=== PATIENT | male | born 1985 | race Caucasian/White ===

== ENCOUNTER 2021-04-24 20:18 | Emergency (ER) | payer MEDICARE, MEDICAID ==
[~2021-04-24] VITALS: Ht 152 cm; Wt 72.5 kg
[2021-04-24 20:22] VITALS: BP 114/75
[2021-04-24] MEDS ORDERED: predniSONE 20 MG TAB PO ONE (20:30)
[2021-04-24] MEDS ORDERED: PRD20T PO (20:32)
--- NOTE | 2021-04-24 20:32 | ED Integumentary General ---
General Stated Complaint: RASH ALL OVER BODY Source: patient Exam Limitations: no limitations (DONOVAN GUTIERREZ APRN) History of Present Illness Date Seen by Provider: Apr 24, 2021 Time Seen by Provider: 20:30 Initial Comments Pruritic rash to torso and left arm onset this morning has had Benadryl ela without much improvement. No known cause no other symptoms. Timing/Duration: constant Severity: moderate Location: torso, extremities Possible Cause: no cause identified Associated Symptoms: denies symptoms (DONOVAN GUTIERREZ APRN) Allergies and Home Medications Allergies Coded Allergies: No Known Drug Allergies (Unverified , 04/24/21) Home Medications Prednisone 20 Mg Tab, 40 MG PO DAILY Prescribed by: DONOVAN GUTIERREZ on 04/24/212031 Patient Home Medication List Home Medication List Reviewed: Yes (DONOVAN GUTIERREZ APRN) Review of Systems Review of Systems Constitutional: see HPI; No chills, No fever EENTM: see HPI; No nose congestion, No throat pain Respiratory: no symptoms reported Cardiovascular: no symptoms reported Genitourinary: no symptoms reported Musculoskeletal: no symptoms reported Skin: see HPI Psychiatric/Neurological: No Symptoms Reported Endocrine: No Symptoms Reported (DONOVAN GUTIERREZ APRN) Physical Exam Vital Signs Vital Signs - First Documented 04/24/21 20:22 Temp 36.7 Pulse 96 Resp 18 B/P (MAP) 114/75 (88) Pulse Ox 100 O2 Delivery Room Air (BRIAN MACIEL MD) Vital Signs Capillary Refill : (DONOVAN GUTIERREZ APRN) General Appearance: WD/WN, no apparent distress HEENT: PERRL/EOMI, normal ENT inspection Respiratory: no respiratory distress, no accessory muscle use Gastrointestinal: normal bowel sounds, non tender, other (Colostomy left lower abdomen) Neurologic/Psychiatric: alert, normal mood/affect, oriented x 3 Skin: normal color, warm/dry Skin Problem Character: other (Erythematous papular rash to the torso and left arm. Nothing on the palms nothing in the mouth.) (DONOVAN GUTIERREZ APRN) Progress/Results/Core Measures Results/Orders Vital Signs/I&O 04/24/21 20:22 Temp 36.7 Pulse 96 Resp 18 B/P (MAP) 114/75 (88) Pulse Ox 100 O2 Delivery Room Air (BRIAN MACIEL MD) Departure Impression Primary Impression: Urticaria Disposition: 01 HOME, SELF-CARE Condition: Stable Departure-Patient Inst. Decision time for Depature: 20:31 (DONOVAN GUTIERREZ APRN) Patient Instructions: NO INSTRUCTIONS GIVEN Add. Discharge Instructions: Continue with Benadryl 1 to 2 tablets every 4-6 hours. Steroids as directed. Follow-up with your doctor next week. Scripts Prednisone (Prednisone) 20 Mg Tab 40 MG PO DAILY, #6 TAB 0 Refills Prov: DONOVAN GUTIERREZ APRN 04/24/21 ATTENDING PHYSICIAN NOTE: I was physically present as attending physician in the emergency department during the care of this patient, but I was not directly involved in the decision making or delivery of care for this patient. (BRIAN MACIEL MD) DONOVAN GUTIERREZ APRN Apr 24, 2021 20:32 BRIAN MACIEL MD Apr 25, 2021 21:42
--- OUTSIDE RECORDS SUMMARY | 2021-04-27 20:01 | XMS REPORT | Clinical Summary ---
Author Author [facility] Organization [facility] Address Unknown Phone Unavailable Care Team Providers Care Cash Grain Farmer Name Role Phone [place]-Mary Brown MD Unavailable Natalie Weber MD Unavailable Ruperto Cardenas MD Unavailable Unavailable Stephanie Becker DO Unavailable Gloria Stubbs MD Unavailable Olesya Avina DO Unavailable Chuck Morris MD Unavailable Micky VELOZ PA-C, James R Unavailable [phone] Jett Hitchcock MD Unavailable Maddy Campbell MD Unavailable Dyllan Byrne MD Unavailable Jaison Luciano MD Unavailable Bryon Stapleton MD Unavailable Anitha Browning MD Unavailable Aurora Moody Unavailable Unavailable Princess Angelo RN Unavailable Unavailable Arely Paul RN Unavailable Unavailable Princess Bangura RN Unavailable Unavailable Dana Serna Unavailable Unavailable Arely Paul Unavailable Unavailable Raulito Isabel MD Unavailable Ruben Neumann RN Unavailable Mayela Fabian MD Unavailable Kamla Dent HOUSEKEEPING DIRECTOR-MARKETING STRATEGY LEAD Unavailable Winsome Kramer Unavailable Unavailable Mar Tabor LPN Unavailable Unavailable Bri Hart Unavailable Unavailable Arturo Otoole MD PCP Khloe Thompson DO 21 Source Comments Some departments are not documenting in the electronic medical record. If you d o not see the information that you expected, contact Release of Information in [facility] Information Management department at [phone] for further assistan ce in locating additional records.[facility] Allergies Comments Active Allergy Reactions Severity Noted Date Allergy recorded in SMS: Latex~Reactions: ANAPHYLAXIS Latex High 02/25/2007 Allergy recorded in SMS: VANCOMYCIN~Reactions: RASH Vancomycin RASH Medium 02/25/2007 Medications End Date Status Medication Sig Dispensed Refills Start Date Active Loperamide (IMODIUM A-D) Take 1 Tab by 30 Tab 2 2 mg chew mouth as 6 Needed (Diarrhea). Active ondansetron (ZOFRAN) 4 mg Take 4 mg by 0 tablet mouth every 8 hours as needed for Nausea or Vomiting. Active cetirizine HCl (ZYRTEC Take 10 mg by 0 PO) mouth daily. Active PARoxetine (PAXIL) 20 mg Take 20 mg by 0 tablet mouth daily. Active tacrolimus (PROGRAF) 1 mg TAKE 3 150 capsule 11 capsule CAPSULES BY 0 MOUTH EVERY MORNING AND TAKE 2 CAPSULES EVERY EVENING Active mycophenolate DR Take 1 tablet 180 tablet 3 08/09/ 02 (MYFORTIC) 180 mg TbEC by mouth 0 tablet twice daily. 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 LR kidney transplantation 13 with organ from 24 yo 190 lb brother; immediate graft function. CMV neg donor and recipient; EBV neg donor and positive recipient. Pretransplant plas mapheresis x 3 followed by low dose IVIG for DR donor-specific antibody in low titer (MFI values 40,000 and 26,000 prePP). Induction with Thymoglob ulin; total dose 125 mg.. Converted urinary drainage to ureteral sigmoid co nduit during procedure. Discharge creatinine 0.9 mg/dl 2-22 Weight 135 lb s; height 60 in.. Donor HLA Class I: A2,29, B18,44, Bw6,4, Cw12,16; Class II : DR7,15. DR53,DR51, DQ2,6. Recipient HLA Class I: A1,29, B8,44, C7 ,16, SEB4 53, DQB1 2,7. Immunosuppression 10/16/2015 Overview: Formatting of this note might be differ ent from the original. Pretransplant plasmapheresis x 3 follow ed by low dose IVIG for DR donor-specific antibody in low titer (M FI values 40,000 and 26,000 prePP). Induction with Thymoglobulin; total dos e 125 mg. 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 Eosinophilia since 2007, with positive aspergillus skin test and IgE and IgG positive serum to aspergillus, CT s can with infiltrative disease, responsive to steroids. Asthma 07/02/2011 Overview: Formatting of this note might be differ ent from the original. Diagnosed in [address] arted. Axillary lymphadenopathy 07/02/2011 Overview: Formatting of this note might be differ ent from the original. R axillary LAD. CT scan looks reactive. May be related to lung hypersensitivity. Consider axillary bio psy. Pneumonia due to Pseudomonas 07/21/2008 Overview: Formatting of this note might be differ ent from the original. 2/2 aspiration [facility] Postoperative pneumothorax 07/21/2008 Overview: Formatting of this note might be differ ent from the original. Right side, 2/2 right IJ placement at o [facility] facility Fecal incontinence 07/21/2008 Overview: Formatting of this note might be differ ent from the original. 2/2 spina bifida S/P GUNSMITH APPRENTICE shunt 07/21/2008 AVF (arteriovenous fistula) 07/21/2008 Hemodialysis patient 07/21/2008 Aspiration pneumonitis 07/21/2008 Overview: Formatting of this note might be differ ent from the original. Outside facility during IJ placement ESRD (end stage renal disease) Overview: Formatting of this note might be differ ent from the original. 2/2 congenital horseshoe kidney. Spina bifida Horseshoe kidney Obstructive uropathy Resolved Problems Problem Noted Date Resolved Date Testicular pain, right 09/26/2015 09/28/2015 Encounters Care Team Description Date Type Specialty Mayela Fabian MD 03/19/2021 Refill Transplant Surgery from Last 3 Months Surgical History Surgery Date Site/Laterality Comments VENTRICULOPERITONEAL 1984 x3 shunt revision s SHUNT SPINE SURGERY 1984 Spina Bifida Defect Closure CYSTOSTOMY ~ 1984 (4 Vesicostomy mo old) COLON SURGERY ~ 1985 (18 Non-Refluxing Colon Conduit; Dr. Gabrielle Fernandez & Dr. za lenz) Silvia @ [facility] SPINE SURGERY 1984 DIALYSIS FISTULA CREATION 2007 Right Upper Extremity AV FISTULA REPAIR 2007 CARDIOVASCULAR STRESS 2008 [facility] TEST Medical History Medical History Date Comments Unspecified cardiovascular disease Unspecified disorders of nervous system ESRD (end stage renal disease) ([facility]) 07/12/08 Horseshoe kidney Uropathy obstructive Respiratory failure ([facility]) 07/10/08 Pneumothorax 07/10/08 Right Mechanically assisted ventilation 07/10/08 Hemodialysis 07/05/08 Spina bifida Urinary incontinence Chronic intermittent Bowel incontinence Chronic intermittent Hydronephrosis Aspiration pneumonia ([facility]) 07/12/08 With pseudo monas infection Chronic cough 05/2010 GERD (gastroesophageal reflux disease) CHF (congestive heart failure) ([facility]) Pulmonary hypertension ([facility]) Lymphadenopathy 11/2009 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[facility]) History of bronchiectasis Asthma 07/02/2011 Family History Medical History Relation Name Comments Coronary Artery Disease Father Gwain CABGx5 Diabetes Father Gwain Heart Failure Father Gwain High Cholesterol Father Gwain Hypertension Father Gwain Premature Heart Disease Father Gwain Cancer Maternal skin- unknown Grandfather Coronary Artery Disease Paternal Grandfather Premature Heart Disease Paternal Grandfather Relation Name Status Comments Brother Isaiah Alive Father Gwain Alive Maternal Grandfather Mother Marie Alive Other Kevin Alive Paternal Grandfather CAD, CABGx3 (Age 52) Social History Date Tobacco Use Types Packs/Day Years Used Never Smoker Smokeless Tobacco: Never Used Drinks/Week oz/Week Comments Alcohol Use occas. beer No Sex Assigned at Date Recorded Not on file Last Filed Vital Signs Reading Time Taken Comments Vital Sign 99/68 12/09/2018 11:11 AM CDT Blood Pressure 80 12/09/2018 11:11 AM CDT Pulse 36.6 C (97.9 F) 12/09/2018 11:11 AM CDT Temperature 18 09/29/2018 1:07 PM REGIONAL PROJECT MANAGER Respiratory Rate 98% 12/09/2018 11:11 AM CDT Oxygen Saturation - - Inhaled Oxygen Concentration 81.8 kg (180 lb 6.4 oz) 12/09/2018 11:11 AM CDT Weight 152.4 cm (5') 12/09/2018 11:11 AM CDT Height 35.23 12/09/2018 11:11 AM CDT Body Mass Index Plan of Treatment Health Maintenance Due Date Last Done Comments DTAP/TDAP VACCINES (1 - 2002 Tdap) PHYSICAL (COMPREHENSIVE) 2002 EXAM INFLUENZA VACCINE 06/22/2021 07/01/2018, 06/18/2010, 07/05/1999 HEPATITIS C SCREENING Completed 10/29/2012, 08/22/2009 HIV SCREENING Completed 10/29/2012, 08/22/2009 Results Not on filefrom Last 3 Months Insurance Type Payer Benefit Subscriber ID Effective Phone Address Plan / Dates Group Medicaid [facility] MEDICAID [place] QomutyER [id number] 2018-P [facility] Medicare MEDICARE MEDICARE [id number] 2008-P PART A AND resent B Advance Directives Patient Legislative Aide Explanation Type Date Recorded Advance Directives and Living Will Advance 09/27/2015 8:24 AM Directive/DPOA Advance Directives 04/19/2013 11:20 AM and Living Will Advance Directives 09/10/2012 1:15 PM and Living Will Advance Directives 09/10/2012 1:54 PM and Living Will Advance Directives 09/08/2012 4:28 PM and Living Will Advance Directives 03/16/2012 3:03 PM and Living Will Advance Directive/DPOA Advance 09/29/2018 1:01 PM Directive/DPOA Date Inactivated Comments Code Status Date Activated 09/28/2015 4:39 PM Full Code 09/26/2015 8:20 PM Provider has discussed Code Status No, more discussi on w/Patient or Family? needed 11/13/2012 6:26 PM Full Code 11/11/2012 4:49 PM Provider has discussed Code Status No, more discussi on w/Patient or Family? needed 11/09/2012 6:11 PM Full Code 10/31/2012 8:46 AM Provider has discussed Code Status No, more discussi on w/Patient or Family? needed 07/21/2008 5:02 PM Full Code 07/13/2008 3:17 AM
--- OUTSIDE RECORDS SUMMARY | 2021-04-27 20:01 | XMS REPORT | Encounter Summary ---
Author Author [facility] Organization [facility] Address Unknown Phone Unavailable Care Team Providers Care Telescope Maintenance Name Role Phone [place]-Mary Brown MD Unavailable Natalie Weber MD Unavailable Ruperto Cardenas MD Unavailable Unavailable Stephanie Becker DO Unavailable Gloria Stubbs MD Unavailable Olesya Avina DO Unavailable Chuck Morris MD Unavailable Micky VELOZ PA-C, James R Unavailable [phone] Jett Hitchcock MD Unavailable Maddy Campbell MD [...] Unavailable Mayela Fabian MD Unavailable Kamla Dent COMPLIANCE QUALITY PERFORMANCE ANALYST-FOOD SERVICE EMPLOYEE Unavailable Winsome Kramer Unavailable Unavailable Mar Tabor LPN Unavailable Unavailable Bri Hart Unavailable Unavailable Arturo Otoole MD PCP Khloe Thompson DO 21 Reason for Visit * Reason Comments Medication Refill Encounter Details Care Team Description Date Type Department Mayela Fabian MD [address] [place] [address] 03/19/2021 Refill Transplant: Main [place] [facility], [facility] [address] [place] [address] Social History Date Tobacco Use Types Packs/Day Years Used Never Smoker Smokeless Tobacco: Never Used Drinks/Week oz/Week Comments Alcohol Use occas. beer No Sex Assigned at Date Recorded Not on file documented as of this encounter Functional Status Date of Assessment Functional Status Response 12/09/2018 Does the patient have a hearing impairment: No 12/09/2018 Does the patient have a visual impairment: Yes 12/09/2018 Does the patient have impaired ambulation: No 12/09/2018 Does the patient have an activity of daily living No (ADL) impairment: 12/09/2018 Does the patient have an instrumental activity of No daily living (IADL) impairment: Date of Assessment Cognitive Status Response 12/09/2018 Does the patient have a cognitive impairment: Yes documented as of this encounter Ordered Prescriptions Start Date End Date Prescription Sig Dispensed Refills 03/19/2021 tacrolimus (PROGRAF) 1 mg TAKE 3 150 capsule 11 capsule CAPSULES BY MOUTH EVERY MORNING AND TAKE 2 CAPSULES EVERY EVENING documented in this encounter Plan of Treatment Not on filedocumented as of this encounter Visit Diagnoses Not on filedocumented in this encounter Discontinued Medications Start Date End Date Medication Sig Discontinue Reason 03/02/2020 03/19/2021 tacrolimus (PROGRAF) 1 mg TAKE 3 Reorder capsule CAPSULES BY MOUTH EVERY MORNING AND TAKE 2 CAPSULES EVERY EVENING documented as of this encounter Additional Health Concerns Assessment Noted Time A fall risk assessment has been completed for the pat ient 12/09/2018 11:11 AM CDT documented as of this encounter
== END 2021-04-24 20:50 | disposition home or self-care (01) ==
LOC: EDUNIT# 20:18 → ER 20:21
DX: L50.9 Urticaria, unspecified (principal)
CPT/HCPCS: 99283

== ENCOUNTER 2021-06-23 22:31 | Emergency (ER) | payer MEDICARE, MEDICAID ==
[~2021-06-23] VITALS: Ht 152 cm; Wt 63.5 kg
[~2021-06-23 22:31] MED LIST: PRD20T PO
--- OUTSIDE RECORDS SUMMARY | 2021-06-23 22:35 | XMS REPORT | Clinical Summary ---
Author Author [facility] Organization [facility] Address Unknown Phone Unavailable Care Team Providers Care Commercial Lines Manager Name Role Phone [place]-Mary Brown MD Unavailable Natalie Weber MD Unavailable Ruperto Cardenas MD Unavailable Unavailable Stephanie Becker DO Unavailable Gloria Stubbs MD Unavailable Olesya Avina DO Unavailable Chuck Morris MD Unavailable [phone] Micky VELOZ PA-C, James R Unavailable [phone] Jett Hitchcock MD Unavailable Maddy Campbell MD Unavailable Dyllan Bynre MD Unavailable Jaison Luciano MD Unavailable Bryon Stapleton MD Unavailable Anitha Browning MD Unavailable Aurora Moody Unavailable Unavailable Princess Angelo RN Unavailable Unavailable Arely Paul RN Unavailable Unavailable Princess Bangura RN Unavailable Unavailable Dana Serna Unavailable Unavailable Arely Paul Unavailable Unavailable Raulito Isabel MD Unavailable Ruben Neumann RN Unavailable Mayela Fabian MD Unavailable Kamla Dent CLAIMS ADJUSTER SUPERVISOR-LOADER UNLOADER Unavailable Winsome Kramer Unavailable Unavailable Mar Tabor LPN Unavailable Unavailable Bri Hart Unavailable Unavailable Arturo Otoole MD PCP Khloe Thompson DO 21 Source Comments Some departments are not documenting in the electronic medical record. If you d o not see the information that you expected, contact Release of Information in Counts include 234 beds at the [facility] Information Management department at [phone] for further assistan ce in locating additional records.[facility] Allergies Comments Active Allergy Reactions Severity Noted [...] 2/2 [facility] Postoperative pneumothorax 07/21/2008 Overview: Formatting of this note might be differ ent from the original. Right side, 2/2 [facility] Fecal incontinence 07/21/2008 Overview: Formatting of this note might be differ ent from the original. 2/2 spina bifida S/P PLANNING OFFICIAL shunt 07/21/2008 AVF (arteriovenous fistula) 07/21/2008 Hemodialysis [...] Description Date Type Specialty Mayela Fabian MD 06/08/2021 Refill Transplant Surgery Mayela Fabian MD 06/06/2021 Refill Transplant Surgery from Last 3 Months Surgical History Surgery Date Site/Laterality Comments VENTRICULOPERITONEAL 1984 x3 shunt revision s SHUNT SPINE SURGERY 1983 Spina Bifida Defect Closure CYSTOSTOMY ~ 1984 (4 Vesicostomy mo old) COLON SURGERY ~ 1985 (18 Non-Refluxing Colon Conduit; Dr. Gabrielle Fernandez & Dr. za lenz) [facility] @ [facility] SPINE SURGERY 1984 DIALYSIS FISTULA CREATION 2006 Right Upper Extremity AV FISTULA REPAIR 2007 CARDIOVASCULAR STRESS 2008 [facility] TEST Medical History Medical History Date Comments Unspecified cardiovascular disease Unspecified disorders of nervous system ESRD (end stage renal disease) ([facility]) 07/12/08 Horseshoe kidney Uropathy obstructive Respiratory failure ([facility]) 07/10/08 Pneumothorax 07/10/08 Right Mechanically assisted ventilation 07/10/08 Hemodialysis 07/05/08 Spina bifida Urinary incontinence Chronic intermittent Bowel incontinence Chronic intermittent Hydronephrosis Aspiration pneumonia ([facility]) 07/12/08 With pseudo monas infection Chronic cough 05/2010 GERD (gastroesophageal reflux disease) CHF (congestive heart failure) ([facility]) Pulmonary hypertension ([facility]) Lymphadenopathy 11/2009 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 beer No 0 (1 standard drink = 0.6 o z pure alcohol) Alcohol Habits Answer Date Recorded How often do you have a drink containing alcohol? No t asked How many drinks containing alcohol do you have on No t asked a typical day when you are drinking? How often do you have six or more drinks on one Not asked occasion? Comment: occas. beer 05/04/2012 Sex Assigned at Date Recorded Not on file Last Filed Vital Signs Reading Time Taken Comments Vital Sign 99/68 12/09/2018 11:11 AM CDT Blood Pressure 80 12/09/2018 11:11 AM CDT Pulse 36.6 C (97.9 F) 12/09/2018 11:11 AM CDT Temperature 18 09/29/2018 1:07 PM FINANCIAL ANALYST Respiratory Rate 98% 12/09/2018 11:11 AM CDT Oxygen Saturation - - Inhaled Oxygen Concentration 81.8 kg (180 lb 6.4 oz) 12/09/2018 11:11 AM CDT Weight 152.4 cm (5') 12/09/2018 11:11 AM CDT Height 35.23 12/09/2018 11:11 AM CDT Body Mass Index Plan of Treatment Health Maintenance Due Date Last Done Comments DTAP/TDAP VACCINES (1 - 2002 Tdap) PHYSICAL (COMPREHENSIVE) 2002 EXAM INFLUENZA VACCINE 04/22/2021 07/01/2018, 06/18/2010, 07/05/1999 HEPATITIS C SCREENING Completed 10/29/2012, 08/22/2009 HIV SCREENING Completed 10/29/2012, 08/22/2009 Results Not on filefrom Last 3 Months Insurance Type Payer Benefit Subscriber ID Effective Phone Address Plan / Dates Group Medicaid [place] [id number] 2018-P STATE resent HEALTH Medicare MEDICARE MEDICARE [id number] 2008-P PART A AND resent B Advance Directives Patient Side Framer Explanation Type Date Recorded Advance Directives and [...]
--- OUTSIDE RECORDS SUMMARY | 2021-06-23 22:35 | XMS REPORT | Encounter Summary ---
Author Author [facility] Organization [facility] Address Unknown Phone Unavailable Care Team Providers Care Senior Mechanical Estimator Name Role Phone [place]-Mary Brown MD Unavailable Natalie Weber MD Unavailable Ruperto Cardenas MD Unavailable Unavailable Stephanie Becker DO Unavailable Gloria Stubbs MD Unavailable Olesya Avina DO Unavailable Chuck Morris MD Unavailable Micky VELOZ PA-C, James R Unavailable [phone] Jett Hitchcock MD Unavailable Maddy Campbell MD [...] Unavailable Mayela Fabian MD Unavailable Kamla Dent BRANCH ASSISTANT-HEAD SETTER Unavailable Winsome Kramer Unavailable Unavailable Mar Tabor LPN Unavailable Unavailable Bri Hart Unavailable Unavailable Arturo Otoole MD PCP Khloe Thompson DO 21 Reason for Visit * Reason Comments Medication Refill Encounter Details Care Team Description Date Type Department Mayela Fabian MD [address] [facility] [address] [place] [address] 06/06/2021 Refill Transplant: Main [place] [facility], [facility] [address] [place] [address] Social History Date Tobacco Use [...] impairment: Yes documented as of this encounter Plan of Treatment Not on filedocumented as of this encounter Visit Diagnoses Not on filedocumented in this encounter Additional Health Concerns Assessment Noted Time A fall risk assessment has been completed for the pat ient 12/09/2018 11:11 AM CDT documented as of this encounter
--- OUTSIDE RECORDS SUMMARY | 2021-06-23 22:35 | XMS REPORT | Encounter Summary ---
Author Author [facility] Organization [facility] Address Unknown Phone Unavailable Care Team Providers Care Nut Threader Name Role Phone Appling-Mary Brown MD Unavailable Natalie Weber MD Unavailable Ruperto Cardenas MD Unavailable Unavailable Stephanie Becker DO Unavailable Gloria Stubbs MD Unavailable Olesya Avina DO Unavailable Chuck Morris MD Unavailable Micky VELOZ PA-C, James R Unavailable [phone] Jett Hitchcock MD Unavailable Maddy Campbell MD Unavailable Dyllan Byrne MD Unavailable Jaison Luciano MD Unavailable Bryon Stapleton MD Unavailable Anitha Browning MD Unavailable Aurora Moody Unavailable Unavailable Princess Aneglo RN Unavailable Unavailable Arely Paul RN Unavailable Unavailable Princess Bangura RN Unavailable Unavailable Dana Serna Unavailable Unavailable Arely Paul Unavailable Unavailable Raulito Isabel MD Unavailable Ruben Neumann RN Unavailable Mayela Fabian MD Unavailable Kamla Dent DUST CONTROL ENGINEER-OFFICIAL COURT INTERPRETER Unavailable Winsome Kramer Unavailable Unavailable Mar Tabor LPN Unavailable Unavailable Bri Hart Unavailable Unavailable Arturo Otoole MD PCP Khloe Thompson DO 21 Reason for Visit * Reason Comments Medication Refill Encounter Details Care Team Description Date Type Department Mayela Fabian MD [address] [facility] [address] [place] [address] 06/08/2021 Refill Transplant: Main [facility], [facility] [address] [facility] [address], [address] [place] [address] Social History Date Tobacco Use [...]
[2021-06-23] MEDS ORDERED: fentaNYL INJ 100 MCG/2 ML AMP IVP STA (23:18)
--- NOTE | 2021-06-23 23:26 | ED Abdominal Pain ---
General Chief Complaint: Abdominal/GI Problems Stated Complaint: L SIDE / BACK PAIN Nursing Triage Note: PT ARRIVES TO ER FOR LEFT FLANK AND ABDOMINAL PAIN FOR 2.5 HRS. PT STATES THAT PAIN IS IN LEFT LATERAL SIDE AND RADIATES MEDIALY TOWARDS STOMA. PT HAS HX OF KIDNEY TRANSPLANT. PT STATES PAIN IS A 5-6/10 CONSTANTLY WITH EPISODES OF 10/10 INTERMITTENTLY. 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 ) History of Present Illness Date Seen by Provider: Jun 23, 2021 Time Seen by Provider: 23:08 Initial Comments PT ARRIVES VIA POV FROM HOME WITH [id number] C/O SUDDEN ONSET OF LEFT SIDED ABDOMINAL PAIN AND LEFT FLANK PAIN AROUND 1999 TONIGHT NOTHING WORSENS OR IMPROVES PAIN PAIN IS CONSTANT NO FEVER NO NAUSEA/VOMITING HAD MILD DIARRHEA X 1 LAST PM AND X 1 THIS AM HAD NORMAL BM TODAY FELT FINE ALL DAY UNTIL 1999 TONIGHT PT HAS PERMANENT UROSTOMY --CURRENTLY IN LEFT LOWER ABDOMEN SINCE 17 MONTHS OF AGE PT HAS HAD RENAL TRANSPLANT 10/2012 PT HAS HAD MULTIPLE UROLOGICAL SURGERIES PT HAS FREQUENT UTI'S, BUT DOES NOT NORMALLY HAVE THIS TYPE OF PAIN, AND URINE LOOKS CLEAR. IS NOT ON PROPHYLACTIC ANTIBIOTICS NO HISTORY OF KIDNEY STONES PT HAS UROLOGY SPECIALISTS AT , BUT HAS NOT SEEN ANY FOR A LONG TIME--WELL OVER A YEAR PCP: DR. CHAVIS/FLORY BHATT SEES MULTIPLE SPECIALISTS AT ALSO SEES DR. ROBBINS, LAND AGENT AT [facility] IN [place]. HAS NOT SEEN IN OVER A YEAR. Allergies and Home Medications Allergies Coded Allergies: No Known Drug Allergies (Unverified , 04/24/21) Patient Home Medication List Prednisone (Prednisone) 20 Mg Tab, 40 MG PO DAILY Prescribed by: DONOVAN GUTIERREZ on 04/24/212031 Review of Systems Review of Systems Constitutional: no symptoms reported; No fever Respiratory: No Symptoms Reported Cardiovascular: No Symptoms Reported Gastrointestinal: See HPI, Abdominal Pain; Denies Constipated; Diarrhea; Denies Nausea, Denies Vomiting Genitourinary: See HPI Musculoskeletal: see HPI, back pain Skin: no symptoms reported; No rash Psychiatric/Neurological: No Symptoms Reported, Pre-Existing Deficit (SPINA BIFIDA, 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 ) Endocrine: No Symptoms Reported Hematologic/Lymphatic: No Symptoms Reported Past Igdgggt-Efitrf-Sgyxix Hx Patient Social History Tobacco Use?: No Smoking Status: Never a Smoker Use of E-Cig and/or Vaping dev: No Substance use?: No Alcohol Use?: No Pt feels they are or have been: No Immunizations Up To Date First/Initial COVID19 Vaccinat: NA Seasonal Allergies Seasonal Allergies: Yes Past Medical History Surgery/Hospitalization HX: "OVER 40 SURGERIES" SINCE HE WAS AN PERMANENT UROSTOMY SINCE 17 MONTHS OF AGE, CURRENTLY IN LLQ RENAL TRANSPLANT 10/2012 MULTPLE PARACHUTE OFFICER SHUNTS MULTIPLE UROLOGICAL PROCEDURES VESICOSTOMY RIGHT BREAST LUMPECTOMY 2008 RIGHT ORCHIECTOMY 09/2015 CLOSURE OF SPINE . Surgeries: Yes Bladder Surgery, Brain Shunt, Breast, Kidney Transplant, Neurological, Renal, Testicular, Urinary Diversion Respiratory: No Cardiac: No Neurological: Yes (HYDROCEPHALUS W/ PARACHUTE OFFICER SHUNT; SPINA BIFIDA, BUT IS ABLE TO WALK) Genitourinary: Yes (RENAL FAILURE-S/P TRANSPLANT; PERMANENT UROSTOMY;TESTICULAR CANCER) Gastrointestinal: Yes Gastroesophageal Reflux Musculoskeletal: Yes (SPINA BIFIDA) Endocrine: No HEENT: No Cancer: Yes Breast, Testicular Did You Recieve Any Treatments: Yes What Type of Treatment Did You: Surgical Intervention BREAST CANCER 2008--S/P LUMPECTOMY, NO CHEMO OR RADIATION TESTICULAR CANCER 09/2015--S/P RIGHT ORCHIECTOMY, NO CHEMO OR RADIATION-YEARLY ONCOLOGY VISITS Psychosocial: Yes Anxiety, Depression Integumentary: No Blood Disorders: No Physical Exam Vital Signs Vital Signs - First Documented 06/23/21 22:58 Temp 37.0 Pulse 74 Resp 22 B/P (MAP) 124/83 (97) Pulse Ox 100 O2 Delivery Room Air Capillary Refill : Less Than 3 Seconds Height/Weight/BMI Height: '" Weight: lbs. oz. kg; 27.00 BMI Method: General Appearance: WD/WN, no apparent distress Neck: normal inspection Respiratory: normal breath sounds, no respiratory distress, no accessory muscle use Cardiovascular: regular rate, rhythm, no murmur Gastrointestinal: tenderness (DIFFUSE LEFT SIDE ABDOMINAL TENDERNESS, LEFT FLANK TENDERNESS AND SUPRAPUBIC TENDERNESS. UROSTOMY IN LLQ WITH NORMAL APPEARANCE, AND DRAINING CLEAR URINE. MINOR SKIN IRRITATION SURROUNDING UROSTOMY SITE--PT AND CAREGIVER STATES THIS IS NORMAL FOR PT AND NO DIFFERENT THAN USUAL. ) Extremities: normal range of motion, non-tender, normal inspection, no pedal edema, no calf tenderness, normal capillary refill Back: no vertebral tenderness, CVA tenderness (L) Neurologic/Psychiatric: no motor/sensory deficits (GROSS MOTOR/SENSORY INTACT. PT ABLE TO AMBULATE ON HIS OWN WITHOUT ASSISTIVE DEVICE. ), alert, normal mood/affect, oriented x 3 Skin: normal color, warm/dry, rash (NO RASH OTHER THAN MILD SKIN IRRITATION AROUND UROSTOMY SITE. ) Progress/Results/Core Measures Results/Orders Lab Results Laboratory Tests Test 06/23/21 23:22 06/24/21 00:15 Range/Units Urine Color YELLOW Urine Clarity CLEAR Urine pH 7.0 5-9 Urine Specific [place] 1.010 L 1.016-1.022 Urine Protein 2+ H NEGATIVE Urine Glucose (UA) NEGATIVE NEGATIVE Urine Ketones NEGATIVE NEGATIVE Urine Nitrite NEGATIVE NEGATIVE Urine Bilirubin NEGATIVE NEGATIVE Urine Urobilinogen 0.2 < = 1.0 MG/DL Urine Leukocyte Esterase 2+ H NEGATIVE Urine RBC (Auto) 3+ H NEGATIVE Urine RBC 10-25 H /HPF Urine WBC >100 H /HPF Urine Crystals NONE /LPF Urine Bacteria MODERATE H /HPF Urine Casts NONE /LPF Urine Mucus NEGATIVE /LPF Urine Culture Indicated YES Urine Opiates Screen NEGATIVE NEGATIVE Urine Oxycodone Screen NEGATIVE NEGATIVE Urine Methadone Screen NEGATIVE NEGATIVE Urine Propoxyphene Screen NEGATIVE NEGATIVE Urine Barbiturates Screen NEGATIVE NEGATIVE Ur Tricyclic Antidepressants Screen NEGATIVE NEGATIVE Urine Phencyclidine Screen NEGATIVE NEGATIVE Urine Amphetamines Screen NEGATIVE NEGATIVE Urine Methamphetamines Screen NEGATIVE NEGATIVE Urine Benzodiazepines Screen NEGATIVE NEGATIVE Urine Cocaine Screen NEGATIVE NEGATIVE Urine Cannabinoids Screen NEGATIVE NEGATIVE White Blood Count 9.3 4.3-11.0 10^3/uL Red Blood Count 4.00 L 4.30-5.52 10^6/uL Hemoglobin 11.5 L 13.3-17.7 g/dL Hematocrit 36 L 40-54 % Mean Corpuscular Volume 89 80-99 fL Mean Corpuscular Hemoglobin 29 25-34 pg Mean Corpuscular Hemoglobin Concent 32 32-36 g/dL Red Cell Distribution Width 13.0 10.0-14.5 % Platelet Count 192 130-400 10^3/uL Mean Platelet Volume 10.7 9.0-12.2 fL Immature Granulocyte % (Auto) 0 % Neutrophils (%) (Auto) 69 42-75 % Lymphocytes (%) (Auto) 16 12-44 % Monocytes (%) (Auto) 7 0-12 % Eosinophils (%) (Auto) 7 0-10 % Basophils (%) (Auto) 0 0-10 % Neutrophils # (Auto) 6.4 1.8-7.8 10^3/uL Lymphocytes # (Auto) 1.5 1.0-4.0 10^3/uL Monocytes # (Auto) 0.6 0.0-1.0 10^3/uL Eosinophils # (Auto) 0.7 H 0.0-0.3 10^3/uL Basophils # (Auto) 0.0 0.0-0.1 10^3/uL Immature Granulocyte # (Auto) 0.0 0.0-0.1 10^3/uL Sodium Level 136 135-145 MMOL/L Potassium Level 3.8 3.6-5.0 MMOL/L Chloride Level 102 98-107 MMOL/L Carbon Dioxide Level 22 21-32 MMOL/L Anion Gap 12 5-14 MMOL/L Blood Urea Nitrogen 18 7-18 MG/DL Creatinine 1.19 0.60-1.30 MG/DL Estimat Glomerular Filtration Rate 69 BUN/Creatinine Ratio 15 Glucose Level 94 70-105 MG/DL Calcium Level 9.3 8.5-10.1 MG/DL Corrected Calcium 9.8 8.5-10.1 MG/DL Total Bilirubin 0.5 0.1-1.0 MG/DL Aspartate Amino Transf (AST/SGOT) 14 5-34 U/L Alanine Aminotransferase (ALT/SGPT) 11 0-55 U/L Alkaline Phosphatase 69 40-136 U/L Total Protein 6.6 6.4-8.2 GM/DL Albumin 3.4 3.2-4.5 GM/DL My Orders Orders - HUGO LIN DO Ua Culture If Indicated (06/23/21 23:09) Ed Iv/Invasive Line Start (06/23/21 23:18) Cbc With Automated Diff (06/23/21 23:18) Comprehensive Metabolic Panel (06/23/21 23:18) Drug Screen Stat (Urine) (06/23/21 23:18) Ed Iv/Invasive Line Start (06/23/21 23:18) Lactated Ringers (Lr 1000 Ml Iv Solution (06/23/21 23:30) Fentanyl Inj (Sublimaze Injection) (06/23/21 23:18) Urine Culture (06/23/21 23:22) Fentanyl Inj (Sublimaze Injection) (06/23/21 23:45) Ct Abd/Pelvis Wo(Kidney Stone) (06/24/21 00:01) Abdomen/Kub 1view (06/24/21 00:01) Ceftriaxone (Rocephin) (06/24/21 01:00) Medications Given in ED Current Medications Medications Dose Ordered Sig/Venita Route Start Time Stop Time Status Last Admin Dose Admin Fentanyl Citrate 50 mcg ONCE ONCE IM 06/23/21 23:45 06/23/21 23:46 DC 06/23/21 23:48 50 MCG Lactated Ringer's 1,000 ml @ 0 mls/hr Q0M ONCE IV 06/23/21 23:30 06/23/21 23:31 DC 06/24/21 00:36 999 MLS/HR Vital Signs/I&O 06/23/21 22:58 Temp 37.0 Pulse 74 Resp 22 B/P (MAP) 124/83 (97) Pulse Ox 100 O2 Delivery Room Air Blood Pressure Mean: 97 Progress Progress Note : Progress Note VERY DIFFICULT IV ACCESS--PT STATES IS NORMAL, AND EVERYONE ALWAYS HAS A DIFFICULT TIME OBTAINING IV/DRAWING LAB. GIVEN FENTANYL IM FOR PAIN WITH MODERATE IMPROVEMENT IN PAIN GIVEN IV FLUIDS AND ROCEPHIN IV, AFTER IV ACCESS OBTAINED NO FEVER NO ABNORMAL VITALS NO DETERIORATION IN PT'S CONDITION DURING ER STAY ADVISED ADMIT DUE TO EVIDENCE OF PYELONEPHRITIS ON CT SCAN, PT DOES NOT WANT TO BE ADMITTED HERE OR ANYWHERE Diagnostic Imaging Comments KUB-- CT ABDOMEN/PELVIS-- Reviewed: Reviewed by Me Departure Impression Primary Impression: Pyelonephritis of transplanted kidney Additional Impressions: Urinary tract infection Renal transplant recipient PERMANENT UROSTOMY IN PLACE Disposition: AGAINST MEDICAL ADVICE Condition: Against Medical Advice Departure-Patient Inst. Decision time for Depature: 02:20 Referrals: RAMY CHAVIS MD (PCP/Family) Primary Care Physician Patient Instructions: Kidney Infection (DC) Add. Discharge Instructions: FOLLOW UP WITH DR. CHAVIS OR YOUR UROLOGIST OR LAND AGENT ON FRIDAY TYLENOL NEEDED FOR PAIN RETURN TO ER IF SYMPTOMS WORSEN All discharge instructions reviewed with patient and/or family. Voiced underst anding. Scripts Cefdinir (Cefdinir) 300 Mg Capsule 300 MG PO BID, #20 CAP Prov: HUGO LIN DO 06/24/21 HUGO LIN DO Jun 23, 2021 23:26
[2021-06-23 23:28] LABS: BILIRUBIN,URINE NEGATIVE (NEGATIVE); CLARITY,URINE CLEAR; COLOR,URINE YELLOW; GLUCOSE, URINE (UA) NEGATIVE (NEGATIVE); KETONES,URINE NEGATIVE (NEGATIVE); LEUKOCYTE ESTERASE ,URINE 2+ (NEGATIVE); NITRITE,URINE NEGATIVE (NEGATIVE); PROTEIN,URINE 2+ (NEGATIVE)
[2021-06-23] MEDS ORDERED: LACTATED RINGERS 1,000 ML IV ONE (23:30)
[2021-06-23 23:38] LABS: BACTERIA,URINE MODERATE /HPF; WBC,URINE >100 /HPF
[2021-06-23] MEDS ORDERED: fentaNYL INJ 100 MCG/2 ML AMP IM ONE (23:45)
[2021-06-23 23:55] LABS: AMPHETAMINE SCREEN, URINE NEGATIVE (NEGATIVE); BARBITURATE SCREEN URINE NEGATIVE (NEGATIVE); BENZODIAZEPINES SCREEN URINE NEGATIVE (NEGATIVE); CANNABINOID SCREEN, URINE NEGATIVE (NEGATIVE); COCAINE SCREEN URINE NEGATIVE (NEGATIVE); METHADONE STAT NEGATIVE (NEGATIVE); METHAMPHETAMINE SCREEN URINE S NEGATIVE (NEGATIVE); OPIATE SCREEN URINE NEGATIVE (NEGATIVE); OXYCODONE STAT NEGATIVE (NEGATIVE); PROPOXYPHENE STAT NEGATIVE (NEGATIVE); TRICYCLIC ANTIDEPRESSANTS SCRE NEGATIVE (NEGATIVE)
[2021-06-24 00:23] LABS: BASOPHILS % (AUTO) 0 % (0-10); EOSINOPHILS # (AUTO) 0.7 10^3/uL (0.0-0.3); EOSINOPHILS % (AUTO) 7 % (0-10); HEMATOCRIT 36 % (40-54); HEMOGLOBIN 11.5 g/dL (13.3-17.7); LYMPHOCYTES # (AUTO) 1.5 10^3/uL (1.0-4.0); LYMPHOCYTES % (AUTO) 16 % (12-44); MEAN CORPUSCULAR HEMOGLOBIN 29 pg (25-34); MEAN CORPUSCULAR HGB CONC 32 g/dL (32-36); MEAN CORPUSCULAR VOLUME 89 fL (80-99); MEAN PLATELET VOLUME 10.7 fL (9.0-12.2); MONOCYTES # (AUTO) 0.6 10^3/uL (0.0-1.0); MONOCYTES % (AUTO) 7 % (0-12); NEUTROPHILS # (AUTO) 6.4 10^3/uL (1.8-7.8); NEUTROPHILS % (AUTO) 69 % (42-75); PLATELET COUNT 192 10^3/uL (130-400); WHITE BLOOD COUNT 9.3 10^3/uL (4.3-11.0)
[2021-06-24 00:37] LABS: ALBUMIN 3.4 GM/DL (3.2-4.5); POTASSIUM 3.8 MMOL/L (3.6-5.0)
[2021-06-24 00:39] LABS: CALCIUM 9.3 MG/DL (8.5-10.1)
[2021-06-24 00:40] LABS: TOTAL PROTEIN 6.6 GM/DL (6.4-8.2)
[2021-06-24 00:42] LABS: BILIRUBIN,TOTAL 0.5 MG/DL (0.1-1.0)
[2021-06-24 00:43] LABS: CREATININE SERUM 1.19 MG/DL (0.60-1.30)
[2021-06-24] MEDS ORDERED: cefTRIAXone 1,000 MG in WATER (STERILE) FOR INJECTION 10 ML IV ONE (01:00)
[2021-06-24] MEDS ORDERED: CEFD300C3 PO (02:24)
[2021-06-24 02:33] VITALS: BP 120/90
--- NOTE | 2021-06-24 05:54 | Diagnostic Imaging Report ---
INDICATION: abdomen pain. TECHNIQUE: 2 supine view of the abdomen 12:22 AM CORRELATION STUDY: None FINDINGS: Moderate amount of stool within the colon. Left lower quadrant ostomy. No abnormally dilated loops of bowel or findings to suggest obstructive feature. No definitive calcification of the renal silhouettes and/or expected course of either ureter. There is shunt type tubing over the right lower chest and right upper abdomen. Rightward curvature and rotation of the superior lumbar spine with leftward curvature inferiorly. There is abnormal widening at the pubic symphysis. IMPRESSION: 1. Moderate stool retention. No bowel obstruction. 2. Abnormal widening at the pubic symphysis. Correlation for any potential pelvic trauma. Dictated by: Dictated on workstation # [id number]
--- NOTE | 2021-06-24 06:01 | Diagnostic Imaging Report ---
PROCEDURE: CT urinary tract, rule out kidney stone. TECHNIQUE: Multiple contiguous axial images were obtained through the abdomen and pelvis without the use of intravenous contrast. Auto Exposure Controls were utilized during the CT exam to meet ALARA standards for radiation dose reduction. INDICATION: Flank and back pain CORRELATION STUDY: None. FINDINGS: LOWER THORAX: Opacity at the left lung base. Right lung base generally clear. Small hiatal hernia. Heart size borderline enlarged. LIVER: Unremarkable. GALLBLADDER: Present and unremarkable. No bile duct dilatation. SPLEEN: Unremarkable. PANCREAS: Unremarkable. ADRENAL GLANDS: Unremarkable. KIDNEYS: Apparent bilateral nephrectomies with a left lower quadrant transplant. Transplant kidney has mild peripelvic inflammatory stranding. The kidney extends towards a left lower quadrant of inguinal hernia. Transplant surgery just below the skin surface. ABDOMINAL AORTA: Unremarkable, nonaneurysmal. Mildly prominent aortocaval lymph nodes. GASTROINTESTINAL TRACT: Moderate stool within the colon. No bowel obstruction. Normal appendix. No significant ascites and/or free air. URINARY BLADDER: Post cystectomy with ileal conduit and left lower quadrant ostomy. REPRODUCTIVE: Prostate gland not visualized. OSSEOUS STRUCTURES: Apparent spina bifida defects and multiple lumbar developmental vertebral fusions. Abnormal widening at the pubic symphysis. OTHER: Presumed ventriculoperitoneal shunt catheter along the right lateral upper abdominal wall. IMPRESSION: 1. Bilateral nephrectomies with a left lower quadrant transplant. Peripelvic inflammatory stranding is present. Possibility of a renal transplant pyelonephritis is not excluded. No definitive obstructing ureteral stone. 2. Moderate stool retention without bowel obstruction. Initial report was provided by [facility]. Dictated by: Dictated on workstation # [id number]
== END 2021-06-24 02:40 | disposition left against medical advice (07) ==
LOC: EDUNIT# 22:31 → ER 22:32
DX: T86.13 Kidney transplant infection (principal); N39.0 Urinary tract infection, site not specified; Z94.0 Kidney transplant status; Z43.6 Encounter for attention to other artificial openings of urinary tract
CPT/HCPCS: 36415; 74018; 74176; 80053; 80306; 81000; 85025; 87077; 87088; 87186

== ENCOUNTER 2022-05-15 13:43 | Emergency (ER) | payer MEDICARE, MEDICAID ==
[~2022-05-15] VITALS: Ht 154 cm; Wt 56.6 kg
[~2022-05-15 13:43] MED LIST changes: +CEFD300C3 PO
[2022-05-15 14:16] LABS: BILIRUBIN,URINE NEGATIVE (NEGATIVE); CLARITY,URINE CLEAR; COLOR,URINE YELLOW; GLUCOSE, URINE (UA) NEGATIVE (NEGATIVE); KETONES,URINE NEGATIVE (NEGATIVE); LEUKOCYTE ESTERASE ,URINE 1+ (NEGATIVE); NITRITE,URINE POSITIVE (NEGATIVE); PH,URINE 7.5 (5-9); PROTEIN,URINE NEGATIVE (NEGATIVE)
[2022-05-15 14:28] LABS: BACTERIA,URINE MODERATE /HPF; WBC,URINE 0-2 /HPF
[2022-05-15 14:53] LABS: BASOPHILS % (AUTO) 0 % (0-10); EOSINOPHILS # (AUTO) 0.1 10^3/uL (0.0-0.3); EOSINOPHILS % (AUTO) 1 % (0-10); HEMATOCRIT 32 % (40-54); HEMOGLOBIN 10.8 g/dL (13.3-17.7); LYMPHOCYTES % (AUTO) 13 % (12-44); MEAN CORPUSCULAR HEMOGLOBIN 29 pg (25-34); MEAN CORPUSCULAR HGB CONC 34 g/dL (32-36); MEAN CORPUSCULAR VOLUME 85 fL (80-99); MEAN PLATELET VOLUME 10.2 fL (9.0-12.2); MONOCYTES # (AUTO) 0.8 10^3/uL (0.0-1.0); MONOCYTES % (AUTO) 11 % (0-12); NEUTROPHILS # (AUTO) 5.4 10^3/uL (1.8-7.8); NEUTROPHILS % (AUTO) 75 % (42-75); PLATELET COUNT 153 10^3/uL (130-400); WHITE BLOOD COUNT 7.2 10^3/uL (4.3-11.0)
[2022-05-15 15:14] LABS: ALBUMIN 3.3 GM/DL (3.2-4.5)
[2022-05-15 15:15] LABS: POTASSIUM 3.7 MMOL/L (3.6-5.0)
[2022-05-15 15:16] LABS: CALCIUM 8.7 MG/DL (8.5-10.1)
[2022-05-15 15:17] LABS: TOTAL PROTEIN 7.1 GM/DL (6.4-8.2)
[2022-05-15 15:19] LABS: BILIRUBIN,TOTAL 0.4 MG/DL (0.1-1.0)
[2022-05-15 15:21] LABS: CREATININE SERUM 1.04 MG/DL (0.60-1.30)
--- NOTE | 2022-05-15 15:31 | ED General ---
General Chief Complaint: General Problems/Pain Stated Complaint: SCROTUM PAIN/DISCHARGE,HX TESTICULAR CA Nursing Triage Note: ARRIVED VIA AMB TO ROOM 08 WITH COMPLAINTS OF TESTICULAR PAIN AND BROTHER NOTICED BROWNISH YELLOW DRAINAGE WHEN HE CHANGED HIS DEPENDS. PT HAS A HX OF TESTICULAR CA, KIDNEY TRANSPLANT, AND SPINA BIFIDA. Source of Information: Patient Exam Limitations: No Limitations History of Present Illness Date Seen by Provider: May 15, 2022 Time Seen by Provider: 13:55 Allergies and Home Medications Allergies Coded Allergies: latex (Verified Allergy, Unknown, 05/15/22) vancomycin (Verified Allergy, Unknown, 05/15/22) Patient Home Medication List Cefdinir (Cefdinir) 300 Mg Capsule, 300 MG PO BID Prescribed by: HUGO LIN on 06/24/21223 Prednisone (Prednisone) 20 Mg Tab, 40 MG PO DAILY Prescribed by: DONOVAN GUTIERREZ on 04/24/212031 Past Mxexngn-Mpotzd-Loxity Hx Patient Social History Tobacco Use?: No Substance use?: No Alcohol Use?: No Immunizations Up To Date First/Initial COVID19 Vaccinat: NA Seasonal Allergies Seasonal Allergies: Yes Past Medical History Surgery/Hospitalization HX: "OVER 39 SURGERIES" SINCE HE WAS AN INFANT PERMANENT UROSTOMY SINCE 18 MONTHS OF AGE, CURRENTLY IN [facility] RENAL TRANSPLANT 10/2012 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 Surgeries: Yes Bladder Surgery, Brain Shunt, Breast, Kidney Transplant, Neurological, Renal, Testicular, Urinary Diversion Respiratory: No Cardiac: No Neurological: Yes (HYDROCEPHALUS W/ SPECIAL PROJECTS COORDINATOR SHUNT; SPINA BIFIDA, BUT IS ABLE TO WALK) Genitourinary: Yes (RENAL FAILURE-S/P TRANSPLANT; PERMANENT UROSTOMY;TESTICULAR CANCER) Gastrointestinal: Yes Gastroesophageal Reflux Musculoskeletal: Yes (SPINA BIFIDA) Endocrine: No HEENT: No Cancer: Yes Breast, Testicular Did You Recieve Any Treatments: Yes What Type of Treatment Did You: Surgical Intervention Psychosocial: Yes Anxiety, Depression Integumentary: No Blood Disorders: No Physical Exam Vital Signs Vital Signs - First Documented 05/15/22 13:55 Temp 37.2 Pulse 76 Resp 16 B/P (MAP) 101/73 (82) Pulse Ox 99 O2 Delivery Room Air Capillary Refill : Less Than 3 Seconds Height, Weight, BMI Height: '" Weight: lbs. oz. kg; 23.00 BMI Method: Progress/Results/Core Measures Suspected Sepsis SIRS Temperature: Pulse: 76 Respiratory Rate: 16 Laboratory Tests 05/15/22 14:45: White Blood Count 7.2 Blood Pressure 101 /73 Mean: 82 Laboratory Tests 05/15/22 14:45: Creatinine 1.04, Platelet Count 153, Total Bilirubin 0.4 Results/Orders Lab Results Laboratory Tests Test 05/15/22 14:09 05/15/22 14:45 Range/Units Urine Color YELLOW Urine Clarity CLEAR Urine pH 7.5 5-9 Urine Specific [place] 1.010 L 1.016-1.022 Urine Protein NEGATIVE NEGATIVE Urine Glucose (UA) NEGATIVE NEGATIVE Urine Ketones NEGATIVE NEGATIVE Urine Nitrite POSITIVE H NEGATIVE Urine Bilirubin NEGATIVE NEGATIVE Urine Urobilinogen 0.2 < = 1.0 MG/DL Urine Leukocyte Esterase 1+ H NEGATIVE Urine RBC (Auto) NEGATIVE NEGATIVE Urine RBC NONE /HPF Urine WBC 0-2 /HPF Urine Crystals NONE /LPF Urine Bacteria MODERATE H /HPF Urine Casts NONE /LPF Urine Mucus NEGATIVE /LPF Urine Culture Indicated YES White Blood Count 7.2 4.3-11.0 10^3/uL Red Blood Count 3.70 L 4.30-5.52 10^6/uL Hemoglobin 10.8 L 13.3-17.7 g/dL Hematocrit 32 L 40-54 % Mean Corpuscular Volume 85 80-99 fL Mean Corpuscular Hemoglobin 29 25-34 pg Mean Corpuscular Hemoglobin Concent 34 32-36 g/dL Red Cell Distribution Width 13.2 10.0-14.5 % Platelet Count 153 130-400 10^3/uL Mean Platelet Volume 10.2 9.0-12.2 fL Immature Granulocyte % (Auto) 0 % Neutrophils (%) (Auto) 75 42-75 % Lymphocytes (%) (Auto) 13 12-44 % Monocytes (%) (Auto) 11 0-12 % Eosinophils (%) (Auto) 1 0-10 % Basophils (%) (Auto) 0 0-10 % Neutrophils # (Auto) 5.4 1.8-7.8 10^3/uL Lymphocytes # (Auto) 1.0 1.0-4.0 10^3/uL Monocytes # (Auto) 0.8 0.0-1.0 10^3/uL Eosinophils # (Auto) 0.1 0.0-0.3 10^3/uL Basophils # (Auto) 0.0 0.0-0.1 10^3/uL Immature Granulocyte # (Auto) 0.0 0.0-0.1 10^3/uL Sodium Level 133 L 135-145 MMOL/L Potassium Level 3.7 3.6-5.0 MMOL/L Chloride Level 98 98-107 MMOL/L Carbon Dioxide Level 23 21-32 MMOL/L Anion Gap 12 5-14 MMOL/L Blood Urea Nitrogen 15 7-18 MG/DL Creatinine 1.04 0.60-1.30 MG/DL Estimat Glomerular Filtration Rate 94 BUN/Creatinine Ratio 14 Glucose Level 103 70-105 MG/DL Calcium Level 8.7 8.5-10.1 MG/DL Corrected Calcium 9.3 8.5-10.1 MG/DL Total Bilirubin 0.4 0.1-1.0 MG/DL Aspartate Amino Transf (AST/SGOT) 16 5-34 U/L Alanine Aminotransferase (ALT/SGPT) 11 0-55 U/L Alkaline Phosphatase 65 40-136 U/L Total Protein 7.1 6.4-8.2 GM/DL Albumin 3.3 3.2-4.5 GM/DL My Orders Orders - AB LIZARRAGA APRN Ua Culture If Indicated (05/15/22 14:08) Cbc With Automated Diff (05/15/22 14:18) Comprehensive Metabolic Panel (05/15/22 14:18) Genital Culture (05/15/22 14:18) Chlamydia Trachomatis Urine (05/15/22 14:18) Neis Tyrone Dna Urine Test (05/15/22 14:18) Us Scrotum (Testicle) [id number] (05/15/22 14:18) Urine Culture (05/15/22 14:09) Vital Signs/I&O 05/15/22 13:55 Temp 37.2 Pulse 76 Resp 16 B/P (MAP) 101/73 (82) Pulse Ox 99 O2 Delivery Room Air Capillary Refill : Less Than 3 Seconds Blood Pressure Mean: 82 Departure Impression Primary Impression: Penile discharge Additional Impression: Scrotal pain Disposition: 01 HOME, SELF-CARE Condition: Stable Departure-Patient Inst. Decision time for Depature: 15:28 Referrals: RAMY CHAVIS MD (PCP/Family) Primary Care Physician Patient Instructions: NO INSTRUCTIONS GIVEN Add. Discharge Instructions: Plan: 1. Have close follow up with Dr. Nieves. Please call tomorrow to schedule close follow up. 2. Urine culture pending. 3. Return for any new, concerning, or worsening symptoms. All discharge instructions reviewed with patient and/or family. Voiced understanding. AB LIZARRAGA MANAGER TRADING May 15, 2022 15:31
[2022-05-15 15:47] VITALS: BP 126/82
--- NOTE | 2022-05-15 15:51 | Diagnostic Imaging Report ---
PROCEDURE: US Scrotum. TECHNIQUE: Multiple real-time grayscale images were obtained over the scrotum in various projections bilaterally. INDICATION: Left testicular pain. Patient does have a history of testicular cancer with right orchiectomy. FINDINGS: Right testicle is surgically absent. Left testicle measures 2.9 x 1.9 x 1.8 cm. Left testicle shows homogeneous echotexture. No mass is seen. There is normal blood flow present. Epididymis is unremarkable. No hydrocele or varicocele is detected. IMPRESSION: Status post right orchiectomy. The left testicle is unremarkable. Dictated by: Dictated on workstation # [id number]
== END 2022-05-15 15:47 | disposition home or self-care (01) ==
LOC: EDUNIT# 13:43 → ER 13:47
DX: N50.82 Scrotal pain (principal); R36.9 Urethral discharge, unspecified; Z85.47 Personal history of malignant neoplasm of testis; Z91.040 Latex allergy status; Z28.310 Unvaccinated for COVID-19
CPT/HCPCS: 36415; 76870; 80053; 81000; 85025; 87077; 87088; 87491; 87591